=== PATIENT | male | born 1990 | race Caucasian/White ===

== ENCOUNTER → 2020-10-21 | Outpatient (CLI) | payer OTHER | LOC: M.RAD 09:56 | PROVIDERS: ATTEND Orthopaedic Surgery | DX: M19.042 Primary osteoarthritis, left hand (principal) ==

== ENCOUNTER → 2021-01-27 | Outpatient (CLI) | payer OTHER | LOC: M.PUL 13:57 | PROVIDERS: ATTEND Chiropractor | DX: R06.02 Shortness of breath (principal) ==